=== PATIENT | male | born 1970 | race Two or more races ===

== ENCOUNTER 2025-06-30 19:48 | Inpatient (IN) | payer OTHER ==
[~2025-06-30] VITALS: Ht 167.6 cm; Wt 84.6 kg
--- NOTE | 2025-06-30 20:22 | ED.PDOC ---
Musculoskeletal HPI Comments 54-year-old male who came to ER for right foot swelling. Patient with history of alcohol abuse. Resides at a [facility] facility. He has having right foot swelling that progressively worsened in the past few days. Denies any fever or recent trauma. Patient reports he has had issues with this right foot previously, does not state when that was specifically. He states that he was recently admitted to a hospital related to his alcohol abuse and was already having the issue, however, was not treated for such. Does have fungal nails. Denies any fever, trauma. Reports that today he noticed that the foot was more painful, swollen. Chief Complaint: Extremity Swelling Time Seen by MD: 20:21 Reviewed Notes: Nurses Notes Allergies: Coded Allergies: NO KNOWN ALLERGIES (Unverified , 06/30/25) Information Source: Patient Mode of Arrival: Ambulatory Location: Right Extremity Location: Foot Past Medical History PAST MEDICAL HISTORY: Denies Surgical History: Denies all surgeries Family History Family History: Reviewed,noncontributory to illness Social History Smoker: Non-Smoker Alcohol: Heavy Drugs: Denies Drug Use Lives In: Assisted Care Constitutional: denies: chills, diaphoresis, fatigue, fever, malaise, sweats, weakness, others EENTM: denies: blurred vision, double vision, ear bleeding, ear discharge, ear drainage, ear pain, ear ringing, eye pain, eye redness, hearing loss, mouth pain, mouth swelling, nasal discharge, nose bleeding, nose congestion, nose pain, photophobia, tearing, throat pain, throat swelling, voice changes, others Respiratory: denies: cough, hemoptysis, orthopnea, SOB at rest, shortness of breath, SOB with excertion, stridor, wheezing, others Cardiovascular: denies: chest pain, dizzy spells, diaphoresis, Dyspnea on exertion, edema, irregular heart beat, left arm pain, lightheadedness, palpitations, PND, syncope, others Gastrointestinal: denies: abdomen distended, abdominal pain, blood streaked bowels, constipated, diarrhea, dysphagia, difficulty swallowing, hematemesis, melena, nausea, poor appetite, poor fluid intake, rectal bleeding, rectal pain, vomiting, others Genitourinary: denies: burning, dysuria, flank pain, frequency, hematuria, incontinence, penile discharge, penile sore, pain, testicle pain, testicle swelling, urgency, others Neurological: denies: dizziness, fainting, headache, left sided numbness, left sided weakness, numbness, paresthesia, pre-existing deficit, right sided numbness, right sided weakness, seizure, speech problems, tingling, tremors, weakness, others Musculoskeletal: reports: others (Right foot swelling); denies: back pain, gout, joint pain, joint swelling, muscle pain, muscle stiffness, neck pain Integumetry: denies: bruises, change in color, change in hair/nails, dryness, laceration, lesions, lumps, rash, wounds, others Allergic/Immunocompromised: denies: Difficulty Healing, Frequent Infections, Hives, Itching, others Hematologic/Lymphatic: denies: anemia, blood clots, easy bleeding, easy bruising, swollen glands, others Endocrine: denies: excessive hunger, excessive sweating, excessive thirst, excessive urination, flushing, intolerance to cold, intolerance to heat, unexplained weight gain, unexplained weight loss, others Psychiatric: denies: anxiety, bipolar disorder, depression, hopeless, panic disorder, schizophrenia, sleepless, suicidal, others Physical Exam General Appearance: No Apparent Distress, Normal HEENT: Normal ENT Inspection, Pharynx Normal, TMs Normal Neck: Full Range of Motion, Non-Tender, Normal, Normal Inspection Respiratory: Chest Non-Tender, Lungs Clear, No Accessory Muscle Use, No Respiratory Distress, Normal Breath Sounds Cardiovascular: No Edema, No JVD, No Murmur, No Gallop, Normal Peripheral Pulses, Regular Rate/Rhythm Breast Exam: Deferred Gastrointestinal: No Organomegaly, Non Tender, No Pulsatile Mass, Normal Bowel Sounds, Soft Genitalia: Deferred Pelvic: Deferred Rectal: Deferred Extremities: No calf tenderness, Normal capillary refill, Normal range of motion, Non-tender, Swelling (Right foot: +soft tissue swelling along entire dorsum of foot, +palpable pulse, no crepitus, +fungal nails, no discoloration of toes) Musculoskeletal : Apperance: Normal Neurologic: Alert, medical manager II-XII nml as Tested, No Motor Deficits, Normal Affect, Normal Mood, No Sensory Deficits Cerebellar Function: Normal Reflexes: Normal Skin: Dry, Normal Color, Warm Lymphatic: No Adenopathy Was a procedure done? Was a procedure done?: No Differential Diagnosis EXT Differential Diagnosis: Cellulitis, Sprain, Strain, Arthritis X-Ray, Labs, Meds, VS Vital Signs Date Time Temp Pulse Resp B/P (MAP) Pulse Ox O2 Delivery O2 Flow Rate FiO2 06/30/25 23:25 98.5 06/30/25 23:25 98.5 06/30/25 23:09 98.0 69 16 161/113 (129) 98 98.0 06/30/25 22:19 98.5 06/30/25 22:18 98.2 06/30/25 19:50 98.1 76 16 153/96 97 98.1 Lab Test 06/30/25 21:33 Range/Units White Blood Count 7.8 4.4-10.8 10^3/uL Red Blood Count 4.76 4.5-5.90 10^6/uL Hemoglobin 13.4 L 13.5-17.5 g/dL Hematocrit 40.1 L 41.0-53.0 % Mean Corpuscular Volume 84.4 80.0-100.0 fL Mean Corpuscular Hemoglobin 28.1 28.0-32.0 pg Mean Corpuscular Hemoglobin Concent 33.3 32.0-36.0 g/dL Red Cell Distribution Width 14.7 H 11.8-14.3 % Platelet Count 291 140-450 10^3/uL Mean Platelet Volume 8.5 6.9-10.8 fL Neutrophils (%) (Auto) 56.4 37.0-80.0 % Lymphocytes (%) (Auto) 27.2 10.0-50.0 % Monocytes (%) (Auto) 9.2 0.0-12.0 % Eosinophils (%) (Auto) 6.3 0.0-7.0 % Basophils (%) (Auto) 0.9 0.0-2.0 % Neutrophils # (Auto) 4.4 1.6-8.6 10 ^3/uL Lymphocytes # (Auto) 2.1 0.4-5.4 10 ^3/uL Monocytes # (Auto) 0.7 0-1.3 10 ^3/uL Eosinophils # (Auto) 0.5 0-0.8 10 ^3/uL Basophils # (Auto) 0.1 0-0.2 10 ^3/uL Nucleated Red Blood Cells 0.1 % Erythrocyte Sedimentation Rate 11 0-20 mm/hr Sodium Level 141 136-145 mmol/L Potassium Level 4.1 3.5-5.1 mmol/L Chloride Level 104 98-107 mmol/L Carbon Dioxide Level 28 20-31 mmol/L Anion Gap 9 5-15 Blood Urea Nitrogen 13 9-23 mg/dL Creatinine 0.77 0.700-1.30 mg/dL Glomerular Filtration Rate Calc 106 >90 mL/min BUN/Creatinine Ratio 16.9 10.0-20.0 Serum Glucose 103 74-106 mg/dL Lactic Acid Level 1.7 0.4-2.0 mmol/L Calcium Level 9.8 8.7-10.4 mg/dL C-Reactive Protein High Sensitivity 0.33 <1.0 mg/dL Current Medications Medications (Trade) Dose Ordered Sig/Cher Route Start Time Stop Time Status Last Admin Cephalexin (Keflex Capsule) 500 mg ONCE ONCE PO 06/30/25 20:15 06/30/25 20:16 DC 06/30/25 23:24 Acetaminophen (Tylenol Tablet Or Capsule) 1,000 mg ONCE ONCE PO 06/30/25 20:15 06/30/25 20:16 DC 06/30/25 22:19 Ibuprofen (Motrin Tablet) 600 mg ONCE ONCE PO 06/30/25 20:15 06/30/25 20:16 DC 06/30/25 22:18 Ceftriaxone Sodium 50 ml @ 100 mls/hr ONCE ONCE IV 06/30/25 21:30 06/30/25 21:59 DC 06/30/25 22:19 Vancomycin HCl 250 ml @ 200 mls/hr ONCE ONCE IV 06/30/25 21:30 06/30/25 22:44 DC 06/30/25 21:30 EXAM: XY R FOOT 3 VIEW XRAY INDICATION: right foot pain/swelling TECHNIQUE: 3 views of the right foot COMPARISON: None FINDINGS/IMPRESSION: Achilles insertional enthesophyte. Small plantar calcaneal spur. Callus formation which may be sequelae of prior injury along the distal fibula versus posterior malleolus/distal tibia. Dorsal forefoot soft tissue swelling. Suspected freiberg's infraction of the 2nd metatarsal. Question soft tissue emphysema centered of the base of the 1st proximal phalanx and possible extending along the margin of the 1st metatarsal. If clinical concern for osteomyelitis consider further evaluation with MRI. Time of 1ST Reevaluation: 20:19 Reevaluation 1ST: Unchanged Patient Education/Counseling: Diagnosis, Treatment Family Education/Counseling: No Family Present Sepsis Sepsis Reasesment Focused Exam Orders: Laboratory Tests 06/30/25 21:33: Lactic Acid Level 1.7 Departure 1 Departure Time of Disposition: 22:07 (54-year-old male with past medical history of alcohol abuse who is presenting for evaluation of acute on chronic right foot pain swelling. Patient has dark skin, has obvious swelling noted, however, no obvious erythema, does have some slight warmth, seems consistent likely with a cellulitis as the patient has a lot of dry, cracked skin as an entry point for cellulitis. An x-ray of the foot was performed which shows questionable soft tissue emphysema. CT RLE w/ contrast ordered to further evaluate. Shows no evidence of soft tissue emphysema. However, does show significant swelling, inflammation and fluid, no organized collection to suggest abscess. Patient has palpable dorsalis pedis pulse, no discoloration of the toes, does not seem concerning for critical limb ischemia or gangrene. Pt arrives with normal vitals, does not appear toxic. CBC with no evidence of critical leukocytosis. Blood cultures and lactate obtained , lactate within normal limits. Patient given IV ceftriaxone, vancomycin for broad-spectrum coverage. Given oral Tylenol, ibuprofen for analgesia. Patient will be admitted for further management of right-sided foot cellulitis.) Impression: Primary Impression: Right foot pain Additional Impression: Cellulitis of right foot Disposition: ADMITTED INPATIENT Condition: Stable Critical Care Note Critical Care Time?: No Stability Stability form required: No Heart Score Heart Score: Heart Score Response (Comments) Value History N/A 0 EKG N/A 0 Age N/A 0 Risk Factors N/A 0 Troponin N/A 0 Total 0 I personally scribed for AFRICA SHAIKH MD ([email or web address]) on 06/30/25 at 20:22. Electronically submitted by Del Pierre [email or web address]). I personally scribed for AFRICA SHAIKH MD ([email or web address]) on 06/30/25 at 20:34. Electronically submitted by Del [facility] ([email or web address] I personally scribed for AFRICA SHAIKH MD ([email or web address]) on 06/30/25 at 21:13. Electronically submitted by Del Pierre ([facility]). AFRICA SHAIKH MD Jun 30, 2025 20:22
--- NOTE | 2025-06-30 21:05 | DVH ---
EXAM: XY R FOOT 3 VIEW XRAY INDICATION: right foot pain/swelling TECHNIQUE: 3 views of the right foot COMPARISON: None FINDINGS/IMPRESSION: Achilles insertional enthesophyte. Small plantar calcaneal spur. Callus formation which may be sequelae of prior injury along the distal fibula versus posterior malleolus/distal tibia. Dorsal forefoot soft tissue swelling. Suspected freiberg's infraction of the 2nd metatarsal. Question soft tissue emphysema centered of the base of the 1st proximal phalanx and possible extending along the margin of the 1st metatarsal. If clinical concern for osteomyelitis consider further evaluation with MRI.
[2025-06-30] MEDS: VANCOMYCIN 1.25GM/250ML 250 ML IV ONE (21:30)
[2025-06-30 22:00] LABS: Hematocrit 40.1 % (41.0-53.0); Hemoglobin 13.4 g/dL (13.5-17.5); Mean Corpuscular Hemoglobin 28.1 pg (28.0-32.0); Mean Corpuscular Volume 84.4 fL (80.0-100.0); Nucleated Red Blood Cells % 0.1 %
[2025-06-30 22:16] LABS: Chloride 104 mmol/L (98-107); Potassium 4.1 mmol/L (3.5-5.1); Sodium 141 mmol/L (136-145)
[2025-06-30 22:17] LABS: Anion Gap 9 (5-15); Calcium 9.8 mg/dL (8.7-10.4); Carbon Dioxide 28 mmol/L (20-31)
[2025-06-30] MEDS: IBUPROFEN 600 MG TAB PO ONE (22:18)
[2025-06-30] MEDS: ACETAMINOPHEN 500 MG TAB or CAP PO ONE (22:19)
[2025-06-30 22:22] LABS: BUN/Creatinine Ratio 16.9 (10.0-20.0); Blood Urea Nitrogen 13 mg/dL (9-23); Glucose 103 mg/dL (74-106)
[2025-06-30] MEDS: CEPHALEXIN 250 MG CAP PO ONE (23:24)
[2025-06-30] MEDS: IOHEXOL 300 MG/ML 100ML BOTTLE IJ ONE (23:44)
[2025-07-01] VITALS (7 sets, daily range): BP systolic 118–141; BP diastolic 70–83; PULSE 62–69; RESP 17–18; TEMP 97.7–98.4; O2SAT 95–97
--- NOTE | 2025-07-01 00:21 | DVH ---
Exam: CT RT LOWER EXTREMITY W CON History: right foot swelling; eval for soft tissue emphysema on XR Comparison Study: None TECHNIQUE: A digital property specialist image was obtained. During the uneventful, intravenous administration of contrast material, multislice data acquisition was obtained through the right lower extremity. The data set was subsequently reconstructed into multiplanar reformats. RADIATION DOSE: CTDI vol 7.8 mGy. DLP 239.1 mGy.cm Findings: There is no acute fracture. No evidence of dislocation. There is a chronic appearing deformity of the distal fibula. No soft tissue gas is seen. Nonspecific subcutaneous stranding, fluid, and stranding without drainable collection. Impression: 1. No acute fracture. 2. Subcutaneous swelling, stranding, and fluid suggesting infectious/ inflammatory process in the appropriate clinical setting. If there is clinical concern for osteomyelitis, MRI would be more sensitive in further assessment.
--- NOTE | 2025-07-01 01:27 | DVHHPRES ---
History of Present Illness Resident Creating Document: AIDAN KIRK RESIDENT History of Present Illness This is a 54 years old male with past medical history of ETOH use disorder under rehab, HTN not on any medication, questionable CAD came to ED with the complaint of right foot pain for 3 days which is 8/10 intensity when walking or weight- bearing, dull, no radiation, mild lived on taking rest. Patient denies any recent trauma, MVA , insect bite or sick contact. As per patient, need hospitalization and G-tube feeding secondary to unknown etiology. Patient currently denies any fever, SOB, chest pain, abdominal pain, dysuria or any other acute distress. Past medical history: As above Past surgical history: s/p G-tube Personal history: Current smoker, ETOH use disorder currently on rehab quit 1 year or earlier, no illicit drug use Family history: Nothing contributory PCP: [facility] Allergy: No known allergy Home medication: Unable to recall any name. Need to verify his family member per primary team. Review of Systems Constitutional: Yes: Weakness, Malaise; No: Fever, Chills, Sweats, Other Eyes: No: Pain, Vision change, Conjunctivae inflammation, Eyelid inflammation, Other, Redness ENT: No: Ear pain, Ear discharge, Nose pain, Nose discharge, Nose congestion, Mouth pain, Mouth swelling, Throat pain, Throat swelling, Other Respiratory: No: Cough, Dry, Shortness of breath, SOB with excertion, Wheezing, Hemoptysis, Pleuritic Pain, Sputum, Wheezing, Other Cardiovascular: No: Chest Pain, Palpitations, Orthopnea, Paroxysmal Noc. Dyspnea, Edema, Lt Headedness, Other Genitourinary: No Dysuria, No Frequency, No Incontinence, No Hematuria, No Retention, No Other Musculoskeletal: other, foot pain; No: neck pain, shoulder pain, arm pain, back pain, hand pain, leg pain Skin: Other (Swelling right food and fungal nail); No: Rash, Lesions, Jaundice, Bruising Neurological: No: Weakness, Numbness, Incoordination, Change in speech, Confusion, Seizures, Other Allergies: Coded Allergies: NO KNOWN ALLERGIES (Unverified , 06/30/25) Exam Vital Signs Vital Signs Date Time Temp Pulse Resp B/P (MAP) Pulse Ox O2 Delivery O2 Flow Rate FiO2 07/01/25 01:14 97.8 70 16 173/119 (137) 96 97.8 General Appearance: Alert, Oriented X3, Cooperative, moderate distress HEENT: Atraumatic, PERRLA, EOMI Respiratory: Clear to auscultation, Normal air movement Cardiovascular: Regular rate, Normal S1, Normal S2, No murmurs Abdominal: Normal bowel sounds, Soft, No tenderness Extremities: Other (Tender and swollen right foot but no skin breakdown.) Skin: No breakdown, No significant lesion Neuro: Normal gait, Normal speech, Strength at 5/5 X4 ext, Cranial nerves 3-12 NL Psych/Mental Status: Mental status NL, Mood NL Labs/Xrays Labs Test 06/30/25 21:33 Range/Units White Blood Count 7.8 4.4-10.8 10^3/uL Red Blood Count 4.76 4.5-5.90 10^6/uL Hemoglobin 13.4 L 13.5-17.5 g/dL Hematocrit 40.1 L 41.0-53.0 % Mean Corpuscular Volume 84.4 80.0-100.0 fL Mean Corpuscular Hemoglobin 28.1 28.0-32.0 pg Mean Corpuscular Hemoglobin Concent 33.3 32.0-36.0 g/dL Red Cell Distribution Width 14.7 H 11.8-14.3 % Platelet Count 291 140-450 10^3/uL Mean Platelet Volume 8.5 6.9-10.8 fL Neutrophils (%) (Auto) 56.4 37.0-80.0 % Lymphocytes (%) (Auto) 27.2 10.0-50.0 % Monocytes (%) (Auto) 9.2 0.0-12.0 % Eosinophils (%) (Auto) 6.3 0.0-7.0 % Basophils (%) (Auto) 0.9 0.0-2.0 % Neutrophils # (Auto) 4.4 1.6-8.6 10 ^3/uL Lymphocytes # (Auto) 2.1 0.4-5.4 10 ^3/uL Monocytes # (Auto) 0.7 0-1.3 10 ^3/uL Eosinophils # (Auto) 0.5 0-0.8 10 ^3/uL Basophils # (Auto) 0.1 0-0.2 10 ^3/uL Nucleated Red Blood Cells 0.1 % Erythrocyte Sedimentation Rate 11 0-20 mm/hr Sodium Level 141 136-145 mmol/L Potassium Level 4.1 3.5-5.1 mmol/L Chloride Level 104 98-107 mmol/L Carbon Dioxide Level 28 20-31 mmol/L Anion Gap 9 5-15 Blood Urea Nitrogen 13 9-23 mg/dL Creatinine 0.77 0.700-1.30 mg/dL Glomerular Filtration Rate Calc 106 >90 mL/min BUN/Creatinine Ratio 16.9 10.0-20.0 Serum Glucose 103 74-106 mg/dL Lactic Acid Level 1.7 0.4-2.0 mmol/L Calcium Level 9.8 8.7-10.4 mg/dL C-Reactive Protein High Sensitivity 0.33 <1.0 mg/dL SEPSIS Sepsis Screen Date sepsis recognized/suspect: Jun 30, 2025 Time Sepsis recognized/suspect: 1954 Recent Procedure: No On Antibiotic Therapy: No Respiratory Rate >20: No Heart Rate >90: No Temp<36 C (96.8 F) or >38.3 C: No SBP <90 or MAP <65 mmHG: No New Acute Mental Status Change: No Is the patient on CPAP, BIPAP,: No Physician Orders R Foot 3 View Xray (06/30/25 20:10) Blood Culture (06/30/25 21:20) Rt Lower Extremity W Con (06/30/25 21:32) Admit (07/01/25 01:17) Code Status (07/01/25 01:17) 0.9% Ns 1000 Ml (07/01/25 01:30) Enoxaparin Sodium (Lovenox) (07/01/25 10:00) Zinc Sulfate (07/01/25 10:00) Ascorbic Acid Tablet (Vitamin C Tablet) (07/01/25 10:00) Cardiac Diet-2gna,Lofat,Lochol (07/01/25 Breakfast) Echo 2d Mode Cardiac Dop (07/01/25 01:17) Acetaminophen Tablet (Tylenol Tablet) (07/01/25 01:30) Notify Of Changes From Base (07/01/25 01:17) Ceftriaxone Ivpb Rocephin (07/01/25 09:00) Vancomycin (07/01/25 01:30) Losartan Tablet (Cozaar Tablet) (07/01/25 01:30) Losartan Tablet (Cozaar Tablet) (07/01/25 10:00) Pantoprazole Tablet (Protonix Tablet) (07/01/25 06:00) Vital Signs Date Time Temp Pulse Resp B/P (MAP) Pulse Ox O2 Delivery O2 Flow Rate FiO2 07/01/25 01:14 97.8 70 16 173/119 (137) 96 97.8 06/30/25 23:25 98.5 06/30/25 23:25 98.5 06/30/25 23:09 98.0 69 16 161/113 (129) 98 98.0 06/30/25 22:19 98.5 06/30/25 22:18 98.2 06/30/25 19:50 98.1 76 16 153/96 97 98.1 Laboratory Tests Test 06/30/25 21:33 Lactic Acid Level 1.7 mmol/L (0.4-2.0) White Blood Count 7.8 10^3/uL (4.4-10.8) Medications Medications Dose Ordered Sig/Cher Route Start Time Stop Time Status Last Admin Dose Admin Acetaminophen 1,000 mg ONCE ONCE PO 06/30/25 20:15 06/30/25 20:16 DC 06/30/25 22:19 1,000 MG Ceftriaxone Sodium 50 ml @ 100 mls/hr ONCE ONCE IV 06/30/25 21:30 06/30/25 21:59 DC 06/30/25 22:19 100 MLS/HR Cephalexin 500 mg ONCE ONCE PO 06/30/25 20:15 06/30/25 20:16 DC 06/30/25 23:24 500 MG Ibuprofen 600 mg ONCE ONCE PO 06/30/25 20:15 06/30/25 20:16 DC 06/30/25 22:18 600 MG Vancomycin HCl 250 ml @ 200 mls/hr ONCE ONCE IV 06/30/25 21:30 06/30/25 22:44 DC 06/30/25 21:30 200 MLS/HR Assessment/Plan Assessment/Plan Right foot pain secondary to cellulitis Suspected freiberg's infraction 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 CT right lower extremity-No acute fracture. Subcutaneous swelling, stranding, and fluid suggesting infectious/ inflammatory process in the appropriate clinical setting. CRP : 0.33 ESR: 11 Lactic acid: 1.7 Blood culture X-ray right foot: Achilles insertional enthesophyte. Small plantar calcaneal spur. Callus formation which may be sequelae of prior injury along the distal fibula versus posterior malleolus/distal tibia. Dorsal forefoot soft tissue swelling. Suspected freiberg's infraction of the 2nd metatarsal. Question soft tissue emphysema centered of the base of the 1st proximal phalanx and possible extending along the margin of the 1st metatarsal. IVF Empiric antibiotic ceftriaxone and vancomycin Pain management Orthopedic consult as per primary team Essential hypertension ? Coronary artery disease Patient not on any medication Losartan 50 mg daily Monitor blood pressure Reconciling medication a.m. team Echo Anemia of chronic disease Hemoglobin 13.4, HCT 40.1, MCV 84.4, RDW 14.7 No active signs symptoms of bleeding Alcohol use disorder Currently on rehab(last drink 1 year ago) Thiamine and folic acid Diet: Cardiac GI prophylaxis: Pantoprazole DVT prophylaxis: Lovenox Goals of care discussions. More than 27 minute spent with patient. Full code status. -RN (Kandi)-over a manager placement Case discussed with Dr. Arrington Plan discussed with: Patient, Other (Nurse) My Orders Orders - AIDAN KIRK RESIDENT Procedure Category Date Status Time Admit ADMIT 07/01/25 Transmitted 01:17 Code Status CODE 07/01/25 Transmitted 01:17 0.9% Ns 1000 Ml PHA 07/01/25 Transmitted 01:30 Enoxaparin Sodium PHA 07/01/25 Transmitted (Lovenox) 10:00 Zinc Sulfate PHA 07/01/25 Transmitted 10:00 Ascorbic Acid Tablet PHA 07/01/25 Transmitted (Vitamin C Tablet) 10:00 Cardiac DIET 07/01/25 Transmitted Diet-2gna,Lofat,Lochol Breakfast Echo 2d Mode Cardiac US 07/01/25 Transmitted DOP 01:17 Acetaminophen Tablet PHA 07/01/25 Verified (Tylenol Tablet) 01:30 Notify Of Changes SHEREE 07/01/25 Verified From Base 01:17 Ceftriaxone Ivpb PHA 07/01/25 Verified Rocephin 09:00 Vancomycin PHA 07/01/25 Verified 01:30 Losartan Tablet PHA 07/01/25 Verified (Cozaar Tablet) 01:30 Losartan Tablet PHA 07/01/25 Verified (Cozaar Tablet) 10:00 Pantoprazole Tablet PHA 12/5/25 Verified (Protonix Tablet) 06:00 Visit Coding STANDARD RES Billing Provider: DYANA ARRINGTON MD Date of Service if different f: Jul 01, 2025 Common Visit Codes: [id number] INP/OBS CARE (HIGH) Secondary Visit Codes: [id number] CARE PLAN 30 MINUTES AIDAN KIRK RESIDENT Jul 01, 2025 01:27
[2025-07-01] MEDS ORDERED: VANCOMYCIN PER PHARMACY 0 MG IV SCH (01:30)
[2025-07-01] MEDS: LOSARTAN POTASSIUM 25 MG TAB PO ONE (01:37)
[2025-07-01] MEDS: ACETAMINOPHEN 325 MG TAB PO PRN (02:03)
[2025-07-01 03:02] LABS: Hematocrit 40.2 % (41.0-53.0); Hemoglobin 13.6 g/dL (13.5-17.5); Mean Corpuscular Hemoglobin 28.2 pg (28.0-32.0); Mean Corpuscular Volume 83.6 fL (80.0-100.0); Nucleated Red Blood Cells % 0.0 %
[2025-07-01] MEDS: SODIUM CHLORIDE 0.9% 1,000 ML IV SCH (03:13)
[2025-07-01] MEDS: LOSARTAN POTASSIUM 25 MG TAB PO SCH (03:13)
[2025-07-01] MEDS: VANCOMYCIN 750MG KIT 100 ML IV ONE (03:53)
[2025-07-01] MEDS: PANTOPRAZOLE 40 MG TAB PO SCH (06:00)
[2025-07-01] MEDS: ASCORBIC ACID 500 MG TAB PO SCH (10:03)
[2025-07-01] MEDS: ZINC SULFATE 220mg CAP or TAB PO SCH (10:03)
[2025-07-01] MEDS: THIAMINE HCL 100 MG TAB PO SCH (10:03)
[2025-07-01] MEDS: FOLIC ACID 1 MG TAB PO SCH (10:03)
[2025-07-01] MEDS: METOPROLOL TARTRATE 25 MG TAB PO SCH (10:04)
[2025-07-01] MEDS: ENOXAPARIN SOD 40 MG/0.4 ML SYRINGE SC SCH (10:05)
[2025-07-01 12:09] LABS: Hepatitis A Total Antibody Positive (Negative); Hepatitis B Surface Antigen Negative (Negative)
[2025-07-01 12:10] LABS: Hepatitis C Antibody Negative (Negative)
--- NOTE | 2025-07-01 13:03 | DVHPN2 ---
Reviewed: Care Plan, H&P, Labs, Medications, Previous Orders, Radiology Changes from previous H/P or p: No Changes Eyes: No Pain, No Vision change, No Conjunctivae inflammation, No Eyelid inflammation, No Other, No Redness ENT: No Ear pain, No Ear discharge, No Nose pain, No Nose discharge, No Nose congestion, No Mouth pain, No Mouth swelling, No Throat pain, No Throat swelling, No Other Cardiovascular: No Chest Pain, No Palpitations, No Orthopnea, No Paroxysmal Noc. Dyspnea, No Edema, No Lt Headedness, No Other Respiratory: No Cough, No Dry, No Shortness of breath, No SOB with excertion, No Wheezing, No Hemoptysis, No Pleuritic Pain, No Sputum, No Other Genitourinary: No Dysuria, No Frequency, No Incontinence, No Hematuria, No Retention, No Other Musculoskeletal: other; No neck pain, No shoulder pain, No arm pain, No back pain, No hand pain, No leg pain; foot pain Skin: No Rash, No Lesions, No Jaundice, No Bruising; Other (Swelling right food and fungal nail) Objective Vitals Vital Signs Date Time Temp Pulse Resp B/P (MAP) Pulse Ox O2 Delivery O2 Flow Rate FiO2 07/01/25 12:58 98.2 64 18 119/70 (86) 97 98.2 07/01/25 08:00 Room Air* 0 21 Medications Current Medications Medications Dose Ordered Sig/Cher Route Start Time Stop Time Status Last Admin Dose Admin Sodium Chloride 1,000 ml @ 60 mls/hr [id number] IV 07/01/25 01:30 07/01/25 03:13 60 MLS/HR Enoxaparin Sodium 40 mg DAILY SC 07/01/25 10:00 07/01/25 10:05 40 MG Zinc Sulfate 220 mg DAILY PO 07/01/25 10:00 07/01/25 10:03 220 MG Ascorbic Acid 500 mg BID PO 07/01/25 10:00 07/01/25 10:03 500 MG Acetaminophen 650 mg Q6HP PRN PO 07/01/25 01:30 07/01/25 02:03 650 MG Ceftriaxone Sodium 50 ml @ 100 mls/hr DAILY@09 IV 07/01/25 09:00 07/01/25 10:01 100 MLS/HR Vancomycin HCl 0 ml @ 0 mls/hr PER PHARMACY IV 07/01/25 01:30 Pantoprazole Sodium 40 mg DAILY@0600 PO 07/01/25 06:00 07/01/25 06:00 40 MG Clonidine HCl 0.1 mg Q4HP PRN PO 07/01/25 01:45 Metoprolol Tartrate 25 mg BID PO 07/01/25 10:00 07/01/25 10:04 25 MG Thiamine HCl 100 mg DAILY PO 07/01/25 10:00 07/01/25 10:03 100 MG Folic Acid 1 mg DAILY PO 07/01/25 10:00 07/01/25 10:03 1 MG Losartan Potassium 100 mg DAILY PO 07/01/25 02:30 Vancomycin HCl 350 ml @ 200 mls/hr Q12H IV 07/01/25 16:00 Laboratory Results Laboratory Tests 06/30/25 21:33 07/01/25 02:41 Chemistry Test 06/30/25 21:33 Calcium Level 9.8 mg/dL (8.7-10.4) HgA1c, TSH Test 07/01/25 02:41 Hemoglobin A1c 5.9 % A1C (<5.7) H Thyroid Stimulating Hormone (TSH) 2.20 uIU/mL (0.55-4.78) Labs and/or images reviewed: Labs reviewed by me, Image(s) reviewed by me Assessment/Plan Assessment/Plan Right foot infection: Vancomycin Rocephin Possible osteomyelitis right 2nd metatarsal by CT: consult for podiatric Hypertension Chronic current alcohol abuse: Counseling Moderate malnutrition Spent 45 minutes Plan discussed with: Patient My Orders Orders - CHELI LOCKHART MD Procedure Category Date Status Time *Podiatry Consult CONS 07/01/25 Transmitted Kelsey(D[facility]) 12:57 Date of Service: Jul 01, 2025 Billing Provider: CHELI LOCKHART MD Common Visit Codes: [id number] INP/OBS CARE(HIGH) CHELI LOCKHART MD Jul 01, 2025 13:03
[2025-07-01] MEDS: VANCOMYCIN 1.75GM/350ML 350 ML IV SCH (16:48)
[2025-07-02 01:00] VITALS: BP 108/75; PULSE 68; RESP 16; TEMP 97.8; O2SAT 98
[2025-07-02 05:00] VITALS: BP 141/95; PULSE 67; RESP 17; TEMP 98; O2SAT 98
[2025-07-02 07:07] LABS: Cholesterol 138 mg/dL (< 200)
[2025-07-02 07:10] LABS: HDL Cholesterol 38 mg/dL (40-59); Triglycerides 163 mg/dL (< 150)
[2025-07-02 09:00] VITALS: BP_SYST 133; BP_SYST 139; BP_DIAS 72; BP_DIAS 82; PULSE 67; PULSE 72; RESP 20; RESP 96; TEMP 97.8; O2SAT 95; O2SAT 98
[2025-07-02] MEDS ORDERED: LOSARTAN POTASSIUM 25 MG TAB PO SCH (10:00)
--- NOTE | 2025-07-02 12:03 | DVHPN2 ---
Reviewed: Care Plan, H&P, Labs, Medications, Previous Orders, Radiology Changes from previous H/P or p: No Changes Eyes: No Pain, No Vision change, No Conjunctivae inflammation, No Eyelid inflammation, No Other, No Redness ENT: No Ear pain, No Ear discharge, No Nose pain, No Nose discharge, No Nose congestion, No Mouth pain, No Mouth swelling, No Throat pain, No Throat swelling, No Other Cardiovascular: No Chest Pain, No Palpitations, No Orthopnea, No Paroxysmal Noc. Dyspnea, No Edema, No Lt Headedness, No Other Respiratory: No Cough, No Dry, No Shortness of breath, No SOB with excertion, No Wheezing, No Hemoptysis, No Pleuritic Pain, No Sputum, No Other Genitourinary: No Dysuria, No Frequency, No Incontinence, No Hematuria, No Retention, No Other Musculoskeletal: other; No neck pain, No shoulder pain, No arm pain, No back pain, No hand pain, No leg pain; foot pain Skin: No Rash, No Lesions, No Jaundice, No Bruising; Other (Swelling right food and fungal nail) Objective Vitals Vital Signs Date Time Temp Pulse Resp B/P (MAP) Pulse Ox O2 Delivery O2 Flow Rate FiO2 07/02/25 09:02 67 141/95 07/02/25 09:00 97.8 96 98 97.8 07/02/25 07:45 Room Air* 0 21 Intake/Output Intake and Output 07/02/25 07:00 Intake Total 2645 ml Output Total 1400 ml Balance 1245 ml Intake Oral 1895 ml IV Total 750 ml Output Urine Total 1400 ml Medications Current Medications Medications Dose Ordered Sig/Cher Route Start Time Stop Time Status Last Admin Dose Admin Sodium Chloride 1,000 ml @ 60 mls/hr [id number] IV 07/01/25 01:30 07/02/25 09:10 60 MLS/HR Enoxaparin Sodium 40 mg DAILY SC 07/01/25 10:00 07/02/25 09:04 40 MG Zinc Sulfate 220 mg DAILY PO 07/01/25 10:00 07/02/25 09:01 220 MG Ascorbic Acid 500 mg BID PO 07/01/25 10:00 07/02/25 09:01 500 MG Acetaminophen 650 mg Q6HP PRN PO 07/01/25 01:30 07/01/25 02:03 650 MG Ceftriaxone Sodium 50 ml @ 100 mls/hr DAILY@09 IV 07/01/25 09:00 07/02/25 08:58 100 MLS/HR Vancomycin HCl 0 ml @ 0 mls/hr PER PHARMACY IV 07/01/25 01:30 Pantoprazole Sodium 40 mg DAILY@0600 PO 07/01/25 06:00 07/02/25 06:26 40 MG Clonidine HCl 0.1 mg Q4HP PRN PO 07/01/25 01:45 Metoprolol Tartrate 25 mg BID PO 07/01/25 10:00 07/02/25 09:02 25 MG Thiamine HCl 100 mg DAILY PO 07/01/25 10:00 07/02/25 08:58 100 MG Folic Acid 1 mg DAILY PO 07/01/25 10:00 07/02/25 08:58 1 MG Losartan Potassium 100 mg DAILY PO 07/01/25 02:30 07/02/25 09:00 100 MG Vancomycin HCl 350 ml @ 200 mls/hr Q12H IV 07/01/25 16:00 07/02/25 04:00 200 MLS/HR Laboratory Results Laboratory Tests 06/30/25 21:33 07/01/25 02:41 Lipid panel Test 07/02/25 04:49 Cholesterol Level 138 mg/dL (< 200) HDL Cholesterol 38 mg/dL (40-59) L Triglycerides Level 163 mg/dL (< 150) H Microbiology Microbiology Date/Time Source Procedure Growth Status 06/30/25 21:39 Blood Blood Culture - Preliminary NO GROWTH AFTER 24 HOURS OF INCUBATION. Resulted Labs and/or images reviewed: Labs reviewed by me, Image(s) reviewed by me Assessment/Plan Assessment/Plan Right foot infection: Vancomycin Rocephin Possible osteomyelitis right 2nd metatarsal by CT: consult for podiatric Hypertension Chronic current alcohol abuse: Counseling Moderate malnutrition Spent 45 minutes Plan discussed with: Patient My Orders Orders - CHELI LOCKHART MD Procedure Category Date Status Time *Podiatry Consult CONS 07/01/25 Transmitted [facility]) 12:57 Date of Service: Jul 02, 2025 Billing Provider: CHELI LOCKHART MD Common Visit Codes: [id number] INP/OBS CARE(HIGH) CHELI LOCKHART MD Jul 02, 2025 12:03
[2025-07-02 12:49] VITALS: BP 155/68; PULSE 79; RESP 18; TEMP 98.6; O2SAT 92
[2025-07-02 16:38] VITALS: BP_SYST 123; BP_SYST 129; BP_DIAS 72; BP_DIAS 81; PULSE 61; PULSE 70; RESP 18; RESP 20; TEMP 98.4; TEMP 98.6; O2SAT 96; O2SAT 97
[2025-07-02 21:00] VITALS: BP 116/75; PULSE 68; RESP 17; TEMP 97.7; O2SAT 95
[2025-07-03] VITALS (7 sets, daily range): BP systolic 108–141; BP diastolic 78–85; PULSE 60–79; RESP 16–18; TEMP 97.2–98.7; O2SAT 94–99
[2025-07-03 07:10] LABS: Hematocrit 41.5 % (41.0-53.0); Hemoglobin 13.8 g/dL (13.5-17.5); Mean Corpuscular Hemoglobin 28.1 pg (28.0-32.0); Mean Corpuscular Volume 84.6 fL (80.0-100.0); Nucleated Red Blood Cells % 0.1 %
--- NOTE | 2025-07-03 11:27 | DVHSR ---
APPROVED REPORT EXAM: Two-dimensional and M-mode echocardiogram with Doppler and color Doppler. Blood Pressure: 141/95 mmHg INDICATION HISTORY OF CARDIAC DISEASE RULE OUT HEART FALURE RISK FACTORS Obesity: Height: 5'6, Weight: 189 DIMENSIONS LVDd 4.2 (3.8-5.7cm) LA (2D) 4.5 (1.9-4.0cm) Aortic Root 3.1 (2.0-3.7cm) LVDs 3.1 (2.5-4.0cm) LA (MM) (1.9-4.0cm) Aortic Cusp Exc 1.6 (1.5-2.0cm) EF (%) 53.0 (55-70%) Rt. Atrium 3.5 (1.9-4.0cm) Asc. Aorta cm IVSd 0.8 (0.7-1.1cm) RV (D) 2.8 (1.8-2.4cm) PWd 0.8 (0.7-1.1cm) Mitral Valve Mitral Mitral Stenosis E wave 0.75m/s MV Mean GR. mmHg A wave 0.75m/s MV Peak GR. mmHg E/A ratio 1.0 2D MVA cm2 DECEL Time 167ms PRESS 1/2 Time ms Aortic Valve Aortic Valve Aortic Stenosis V1 0.88m/s AO Mean GR. 4mmHg V2 1.23m/s AO Peak GR. 6mmHg LVOT Diameter 2.0 (1.8-2.4cm) Doppler [place] 2.25cm2 Pulmonic Valve V2 0.75m/s Other Information Quality : TDS Rhythm : Technically limited study due to body habitus. Conclusion 1) Borderline low normal left ventricular systolic function with estimated ejection fraction of 50-55%. Normal LV wall motion 2)Mild left atrial dilatation 3)Mild tricuspid regurgitation
--- NOTE | 2025-07-03 11:52 | DVHPN2 ---
Reviewed: Care Plan, H&P, Labs, Medications, Previous Orders, Radiology Changes from previous H/P or p: No Changes Eyes: No Pain, No Vision change, No Conjunctivae inflammation, No Eyelid inflammation, No Other, No Redness ENT: No Ear pain, No Ear discharge, No Nose pain, No Nose discharge, No Nose congestion, No Mouth pain, No Mouth swelling, No Throat pain, No Throat swelling, No Other Cardiovascular: No Chest Pain, No Palpitations, No Orthopnea, No Paroxysmal Noc. Dyspnea, No Edema, No Lt Headedness, No Other Respiratory: No Cough, No Dry, No Shortness of breath, No SOB with excertion, No Wheezing, No Hemoptysis, No Pleuritic Pain, No Sputum, No Other Genitourinary: No Dysuria, No Frequency, No Incontinence, No Hematuria, No Retention, No Other Musculoskeletal: other; No neck pain, No shoulder pain, No arm pain, No back pain, No hand pain, No leg pain; foot pain Skin: No Rash, No Lesions, No Jaundice, No Bruising; Other (Swelling right food and fungal nail) Objective Vitals Vital Signs Date Time Temp Pulse Resp B/P (MAP) Pulse Ox O2 Delivery O2 Flow Rate FiO2 07/03/25 09:34 74 126/86 07/03/25 08:00 18 96 Room Air* 0 21 07/03/25 05:00 98.0 98.0 Intake/Output Intake and Output 07/03/25 07:00 Intake Total 1950 ml Balance 1950 ml Intake Oral 250 ml IV Total 1700 ml # Voids 4 Medications Current Medications Medications Dose Ordered Sig/Cher Route Start Time Stop Time Status Last Admin Dose Admin Sodium Chloride 1,000 ml @ 60 mls/hr [id number] IV 07/01/25 01:30 07/03/25 04:23 60 MLS/HR Enoxaparin Sodium 40 mg DAILY SC 07/01/25 10:00 07/03/25 08:35 40 MG Zinc Sulfate 220 mg DAILY PO 07/01/25 10:00 07/03/25 08:34 220 MG Ascorbic Acid 500 mg BID PO 07/01/25 10:00 07/03/25 08:34 500 MG Acetaminophen 650 mg Q6HP PRN PO 07/01/25 01:30 07/02/25 21:46 650 MG Ceftriaxone Sodium 50 ml @ 100 mls/hr DAILY@09 IV 07/01/25 09:00 07/03/25 08:33 100 MLS/HR Vancomycin HCl 0 ml @ 0 mls/hr PER PHARMACY IV 07/01/25 01:30 Pantoprazole Sodium 40 mg DAILY@0600 PO 07/01/25 06:00 07/03/25 05:37 40 MG Clonidine HCl 0.1 mg Q4HP PRN PO 07/01/25 01:45 Metoprolol Tartrate 25 mg BID PO 07/01/25 10:00 07/03/25 08:34 25 MG Thiamine HCl 100 mg DAILY PO 07/01/25 10:00 07/03/25 08:33 100 MG Folic Acid 1 mg DAILY PO 07/01/25 10:00 07/03/25 08:33 1 MG Losartan Potassium 100 mg DAILY PO 07/01/25 02:30 07/03/25 08:34 100 MG Vancomycin HCl 350 ml @ 200 mls/hr Q12H IV 07/01/25 16:00 07/03/25 04:23 200 MLS/HR Laboratory Results Laboratory Tests 06/30/25 21:33 07/03/25 06:00 Microbiology Microbiology Date/Time Source Procedure Growth Status 06/30/25 21:39 Blood Blood Culture - Preliminary NO GROWTH AFTER 48 HOURS OF INCUBATION. Resulted Labs and/or images reviewed: Labs reviewed by me, Image(s) reviewed by me Assessment/Plan Assessment/Plan Cellulitis right foot. Vancomycin Rocephin blood cultures negative Possible osteomyelitis right 2nd metatarsal by CT: consult for podiatric Hypertension Chronic current alcohol abuse: Counseling Moderate malnutrition Spent 45 minutes Plan discussed with: Patient Date of Service: Jul 03, 2025 Billing Provider: CHELI LOCKHART MD Common Visit Codes: [id number] INP/OBS CARE(HIGH) CHEIL LOCKHART MD Jul 03, 2025 11:52
[2025-07-04] VITALS (7 sets, daily range): BP systolic 109–136; BP diastolic 58–90; PULSE 65–88; RESP 17–20; TEMP 97.6–98.6; O2SAT 94–97
[2025-07-04 06:03] LABS: Hematocrit 40.3 % (41.0-53.0); Hemoglobin 13.8 g/dL (13.5-17.5); Mean Corpuscular Hemoglobin 28.7 pg (28.0-32.0); Mean Corpuscular Volume 84.0 fL (80.0-100.0); Nucleated Red Blood Cells % 0.1 %
--- NOTE | 2025-07-04 10:16 | DVH ---
CLINICAL INDICATION: r/o om vs abscess COMPARISON: XY R FOOT 3 VIEW XRAY on DOS: 06/30/25 TECHNIQUE: Multiplanar, multisequence MRI of the right foot was performed without intravenous contrast. Contrast: None. INTERPRETATION: Bones: There is T1 hypointensity in the 3rd metatarsal bone with corresponding edema on the STIR images. There is edema in the 2nd metatarsal head which shows flattening and subcortical irregularity without confluent replacement of the marrow in the T1 weighted images. There may be a low signal intensity fracture line on the T1 weighted image. Limited evaluation for abscess without intravenous contrast. Joints: There is 2nd metatarsophalangeal joint space narrowing. Joint spaces are otherwise maintained. No significant joint effusion. Soft tissues: No high-grade tendon or ligament injury. There is dorsal soft tissue swelling in the foot. No obvious fluid collection. IMPRESSION: 1. Osteomyelitis in the 2nd metatarsal bone. Soft tissue swelling in the dorsal foot which may reflect cellulitis. Limited evaluation for abscess without intravenous contrast. No obvious fluid collection. 2. Bone marrow edema in the 2nd metatarsal head which is flattened with narrowing of the joint space. The appearance is suspicious for Freiberg infraction. There may be a small fracture through the subchondral bone of the flattened metatarsal. No replacement of the bone marrow in the 2nd metatarsal he ad to suggest osteomyelitis.
--- NOTE | 2025-07-04 12:50 | DVHPN2 ---
Reviewed: Care Plan, H&P, Labs, Medications, Previous Orders, Radiology Changes from previous H/P or p: No Changes Eyes: No Pain, No Vision change, No Conjunctivae inflammation, No Eyelid inflammation, No Other, No Redness ENT: No Ear pain, No Ear discharge, No Nose pain, No Nose discharge, No Nose congestion, No Mouth pain, No Mouth swelling, No Throat pain, No Throat swelling, No Other Cardiovascular: No Chest Pain, No Palpitations, No Orthopnea, No Paroxysmal Noc. Dyspnea, No Edema, No Lt Headedness, No Other Respiratory: No Cough, No Dry, No Shortness of breath, No SOB with excertion, No Wheezing, No Hemoptysis, No Pleuritic Pain, No Sputum, No Other Genitourinary: No Dysuria, No Frequency, No Incontinence, No Hematuria, No Retention, No Other Musculoskeletal: other; No neck pain, No shoulder pain, No arm pain, No back pain, No hand pain, No leg pain; foot pain Skin: No Rash, No Lesions, No Jaundice, No Bruising; Other (Swelling right food and fungal nail) Objective Vitals Vital Signs Date Time Temp Pulse Resp B/P (MAP) Pulse Ox O2 Delivery O2 Flow Rate FiO2 07/04/25 09:55 60 118/87 07/04/25 09:00 98.3 20 95 98.3 07/04/25 08:00 Room Air* 0 21 Intake/Output Intake and Output 07/04/25 07:00 Intake Total 3300 ml Balance 3300 ml Intake Oral 1600 ml IV Total 1700 ml # Voids 6 # Bowel Movements 1 Medications Current Medications Medications Dose Ordered Sig/Cher Route Start Time Stop Time Status Last Admin Dose Admin Sodium Chloride 1,000 ml @ 60 mls/hr [id number] IV 07/01/25 01:30 07/04/25 01:19 60 MLS/HR Enoxaparin Sodium 40 mg DAILY SC 07/01/25 10:00 07/04/25 08:54 40 MG Zinc Sulfate 220 mg DAILY PO 07/01/25 10:00 07/04/25 08:54 220 MG Ascorbic Acid 500 mg BID PO 07/01/25 10:00 07/04/25 08:54 500 MG Acetaminophen 650 mg Q6HP PRN PO 07/01/25 01:30 07/02/25 21:46 650 MG Ceftriaxone Sodium 50 ml @ 100 mls/hr DAILY@09 IV 07/01/25 09:00 07/04/25 08:55 100 MLS/HR Vancomycin HCl 0 ml @ 0 mls/hr PER PHARMACY IV 07/01/25 01:30 Pantoprazole Sodium 40 mg DAILY@0600 PO 07/01/25 06:00 07/04/25 04:57 40 MG Clonidine HCl 0.1 mg Q4HP PRN PO 07/01/25 01:45 Metoprolol Tartrate 25 mg BID PO 07/01/25 10:00 07/04/25 08:55 25 MG Thiamine HCl 100 mg DAILY PO 07/01/25 10:00 07/04/25 08:54 100 MG Folic Acid 1 mg DAILY PO 07/01/25 10:00 07/04/25 08:54 1 MG Losartan Potassium 100 mg DAILY PO 07/01/25 02:30 07/04/25 08:55 100 MG Vancomycin HCl 350 ml @ 200 mls/hr Q12H IV 07/01/25 16:00 07/04/25 04:56 200 MLS/HR Laboratory Results Laboratory Tests 06/30/25 21:33 07/04/25 05:29 Microbiology Microbiology Date/Time Source Procedure Growth Status 06/30/25 21:39 Blood Blood Culture - Preliminary NO GROWTH AFTER 72 HOURS OF INCUBATION. Resulted Labs and/or images reviewed: Labs reviewed by me, Image(s) reviewed by me Assessment/Plan Assessment/Plan Cellulitis right foot. Vancomycin Rocephin blood cultures negative Possible osteomyelitis right 2nd metatarsal by CT: consult for podiatric Hypertension Chronic current alcohol abuse: Counseling Moderate malnutrition Time Spent 45 minutes Plan discussed with: Patient Date of Service: Jul 04, 2025 Billing Provider: CHELI LOCKHART MD Common Visit Codes: [id number] INP/OBS CARE(HIGH) CHELI LOCKHART MD Jul 04, 2025 12:50
[2025-07-05 00:45] VITALS: BP 111/70; PULSE 70; RESP 18; TEMP 98.3; O2SAT 96
[2025-07-05 05:00] VITALS: BP 123/79; PULSE 84; RESP 17; TEMP 97.9; O2SAT 97
[2025-07-05 08:00] VITALS: PULSE 74; RESP 18; O2SAT 96
[2025-07-05 09:00] VITALS: BP 119/82; PULSE 85; RESP 20; TEMP 98.1; O2SAT 95
--- NOTE | 2025-07-05 10:28 | DVHCONRES ---
Date Seen: Jul 05, 2025 Reason for Consultation Foot pain History of Present Illness This is a 54 years old male with past medical history of ETOH use disorder under rehab, HTN not on any medication, questionable CAD came to ED with the complaint of right foot pain for 3 days which is 8/10 intensity when walking or weight- bearing, dull, no radiation, mild lived on taking rest. Patient denies any recent trauma, MVA , insect bite or sick contact. As per patient, need hospitalization and G-tube feeding secondary to unknown etiology. Patient currently denies any fever, SOB, chest pain, abdominal pain, dysuria or any other acute distress. Past Medical History See H&P Past Surgical History See H&P Family History: Diabetes mellitus G8 MOTHER Allergies: Coded Allergies: NO KNOWN ALLERGIES (Unverified , 06/30/25) Home Meds Unable to Obtain Active Prescriptions or Reported Meds Vital Signs Vital Signs Date Time Temp Pulse Resp B/P (MAP) Pulse Ox O2 Delivery O2 Flow Rate FiO2 07/05/25 09:01 122/80 07/05/25 09:01 63 07/05/25 05:00 97.9 17 97 97.9 07/04/25 20:00 Room Air* 0 21 Physical Exam Dermatological: Skin is dry with mild erythema and some maceration around the wound site No gross deformities noted Mild non-pitting edema present bilaterally Fissures bilateral heel Vascular: Dorsalis pedis and posterior tibial pulses are 1+ bilaterally Capillary refill is under 2 seconds Skin temperature is warm bilaterally Neurologic: Protective sensation is absent on the plantar forefoot bilaterally Monofilament testing reveals decreased sensation in multiple plantar sites Musculoskeletal: Range of motion at the ankle and MTP joints is within normal limits. Strength is 5/5 in all tested muscle groups. Gait is antalgic due to offloading of the affected limb. Tenderness to palpation of the 2nd metatarsal in the right Labs/Diagnostic Data Labs Test 07/05/25 04:59 07/04/25 15:10 07/04/25 05:29 07/02/25 04:49 Range/Units Creatinine 0.73 0.700-1.30 mg/dL Glomerular Filtration Rate Calc 108 >90 mL/min Vancomycin Level Trough 16.7 H 5-10 ug/mL White Blood Count 6.9 4.4-10.8 10^3/uL Red Blood Count 4.80 4.5-5.90 10^6/uL Hemoglobin 13.8 13.5-17.5 g/dL Hematocrit 40.3 L 41.0-53.0 % Mean Corpuscular Volume 84.0 80.0-100.0 fL Mean Corpuscular Hemoglobin 28.7 28.0-32.0 pg Mean Corpuscular Hemoglobin Concent 34.2 32.0-36.0 g/dL Red Cell Distribution Width 14.7 H 11.8-14.3 % Platelet Count 271 140-450 10^3/uL Mean Platelet Volume 8.3 6.9-10.8 fL Neutrophils (%) (Auto) 60.0 37.0-80.0 % Lymphocytes (%) (Auto) 24.3 10.0-50.0 % Monocytes (%) (Auto) 7.3 0.0-12.0 % Eosinophils (%) (Auto) 7.3 H 0.0-7.0 % Basophils (%) (Auto) 1.1 0.0-2.0 % Neutrophils # (Auto) 4.1 1.6-8.6 10 ^3/uL Lymphocytes # (Auto) 1.7 0.4-5.4 10 ^3/uL Monocytes # (Auto) 0.5 0-1.3 10 ^3/uL Eosinophils # (Auto) 0.5 0-0.8 10 ^3/uL Basophils # (Auto) 0.1 0-0.2 10 ^3/uL Nucleated Red Blood Cells 0.1 % Triglycerides Level 163 H < 150 mg/dL Cholesterol Level 138 < 200 mg/dL LDL Cholesterol 85 < 100 mg/dL HDL Cholesterol 38 L 40-59 mg/dL Test 07/01/25 02:41 06/30/25 21:33 Range/Units Hemoglobin A1c 5.9 H <5.7 % A1C Vitamin B12 Level 639 211-911 pg/mL Vitamin D 25-Hydroxy 26.1 L 30.0-100 ng/mL Thyroid Stimulating Hormone (TSH) 2.20 0.55-4.78 uIU/mL Hepatitis A Antibody Total Positive H Negative Hepatitis B Surface Antigen Negative Negative Hepatitis B Surface Antibody Negative Negative Hepatitis B Core Total Antibody Negative Negative Hepatitis C Antibody Negative Negative Erythrocyte Sedimentation Rate 11 0-20 mm/hr Sodium Level 141 136-145 mmol/L Potassium Level 4.1 3.5-5.1 mmol/L Chloride Level 104 98-107 mmol/L Carbon Dioxide Level 28 20-31 mmol/L Anion Gap 9 5-15 Blood Urea Nitrogen 13 9-23 mg/dL BUN/Creatinine Ratio 16.9 10.0-20.0 Serum Glucose 103 74-106 mg/dL Lactic Acid Level 1.7 0.4-2.0 mmol/L Calcium Level 9.8 8.7-10.4 mg/dL C-Reactive Protein High Sensitivity 0.33 <1.0 mg/dL Microbiology Date/Time Source Procedure Growth Status 06/30/25 21:39 Blood Blood Culture - Preliminary NO GROWTH AFTER 72 HOURS OF INCUBATION. Resulted Problems(with codes): (1) Right foot pain (2) Cellulitis of right foot Plan/Recommendation ASSESSMENT: Patient is a 54-year-old seen for worsening right foot pain PLAN: - The patients chart was reviewed, clinical findings were discussed with the patient, the etiologies of the conditions were discussed in detail, and a treatment plan was agreed to at this time, with both oral and written instr uctions provided. - reviewed advanced imaging - patient has Freiberg's disease, recommend weightbearing as tolerated in a cam boot - outpatient follow up for possible surgical intervention - no osteomyelitis - no abscess - no I&D required All questions were answered and concerns addressed to the patient's satisfaction. The patient was given the phone number to the clinic and was told how to make contact with the clinic should any concerns or questions arise. Patient understands that if any questions or concerns arise prior to the next appointment, we should be contacted immediately. FOLLOW-UP: Continue to follow while inpatient Plan discussed with: Patient Visit Coding Podiatry Date of Service if different f: Jul 05, 2025 Billing Provider: FRANCES DELATORRE DPM Podiatry Common Visit Codes: CONSULT ONLY Podiatry Consult Codes: [id number] NEW/EST HI 80 FRANCES DELATORRE DPM Jul 05, 2025 10:28
[2025-07-05] MEDS ORDERED: THIA100T13 PO (12:30)
[2025-07-05] MEDS ORDERED: FOLI-119 PO (12:30)
[2025-07-05] MEDS ORDERED: CLIN1CAP70 PO (12:30)
[2025-07-05] MEDS ORDERED: HYDR-4902 PO (12:30)
--- NOTE | 2025-07-05 12:32 | DVHPN2 ---
Reviewed: Care Plan, H&P, Labs, Medications, Previous Orders, Radiology Changes from previous H/P or p: No Changes Eyes: No Pain, No Vision change, No Conjunctivae inflammation, No Eyelid inflammation, No Other, No Redness ENT: No Ear pain, No Ear discharge, No Nose pain, No Nose discharge, No Nose congestion, No Mouth pain, No Mouth swelling, No Throat pain, No Throat swelling, No Other Cardiovascular: No Chest Pain, No Palpitations, No Orthopnea, No Paroxysmal Noc. Dyspnea, No Edema, No Lt Headedness, No Other Respiratory: No Cough, No Dry, No Shortness of breath, No SOB with excertion, No Wheezing, No Hemoptysis, No Pleuritic Pain, No Sputum, No Other Genitourinary: No Dysuria, No Frequency, No Incontinence, No Hematuria, No Retention, No Other Musculoskeletal: other; No neck pain, No shoulder pain, No arm pain, No back pain, No hand pain, No leg pain; foot pain Skin: No Rash, No Lesions, No Jaundice, No Bruising; Other (Swelling right food and fungal nail) Objective Vitals Vital Signs Date Time Temp Pulse Resp B/P (MAP) Pulse Ox O2 Delivery O2 Flow Rate FiO2 07/05/25 10:01 66 118/74 07/05/25 09:00 98.1 20 95 98.1 07/04/25 20:00 Room Air* 0 21 Intake/Output Intake and Output 07/05/25 07:00 Intake Total 1230 ml Output Total 400 ml Balance 830 ml Intake Oral 880 ml IV Total 350 ml Stool Total 400 ml # Voids 4 Medications Current Medications Medications Dose Ordered Sig/Cher Route Start Time Stop Time Status Last Admin Dose Admin Sodium Chloride 1,000 ml @ 60 mls/hr [id number] IV 07/01/25 01:30 07/05/25 05:40 60 MLS/HR Enoxaparin Sodium 40 mg DAILY SC 07/01/25 10:00 07/05/25 09:01 40 MG Zinc Sulfate 220 mg DAILY PO 07/01/25 10:00 07/05/25 09:01 220 MG Ascorbic Acid 500 mg BID PO 07/01/25 10:00 07/05/25 09:01 500 MG Acetaminophen 650 mg Q6HP PRN PO 07/01/25 01:30 07/02/25 21:46 650 MG Ceftriaxone Sodium 50 ml @ 100 mls/hr DAILY@09 IV 07/01/25 09:00 07/05/25 09:00 100 MLS/HR Vancomycin HCl 0 ml @ 0 mls/hr PER PHARMACY IV 07/01/25 01:30 Pantoprazole Sodium 40 mg DAILY@0600 PO 07/01/25 06:00 07/05/25 05:40 40 MG Clonidine HCl 0.1 mg Q4HP PRN PO 07/01/25 01:45 Metoprolol Tartrate 25 mg BID PO 07/01/25 10:00 07/05/25 09:01 25 MG Thiamine HCl 100 mg DAILY PO 07/01/25 10:00 07/05/25 09:00 100 MG Folic Acid 1 mg DAILY PO 07/01/25 10:00 07/05/25 09:00 1 MG Losartan Potassium 100 mg DAILY PO 07/01/25 02:30 07/05/25 09:01 100 MG Vancomycin HCl 350 ml @ 200 mls/hr Q12H IV 07/01/25 16:00 07/05/25 04:10 200 MLS/HR Laboratory Results Laboratory Tests 06/30/25 21:33 07/04/25 05:29 07/05/25 04:59 Microbiology Microbiology Date/Time Source Procedure Growth Status 06/30/25 21:39 Blood Blood Culture - Preliminary NO GROWTH AFTER 72 HOURS OF INCUBATION. Resulted Labs and/or images reviewed: Labs reviewed by me, Image(s) reviewed by me Assessment/Plan Assessment/Plan Cellulitis right foot. Vancomycin Rocephin blood cultures negative Freiberg's disease, recommend weightbearing as tolerated in a cam boot no osteomyelitis, podiatric consult by Dr. Cole appreciated Advised outpatient follow up Hypertension Chronic current alcohol abuse: Counseling Moderate malnutrition Time Spent 45 minutes Plan discussed with: Patient Date of Service: Jul 05, 2025 Billing Provider: CHELI LOCKHART MD Common Visit Codes: [id number] INP/OBS CARE(HIGH) CHELI LOCKHART MD Jul 05, 2025 12:32
--- NOTE | 2025-07-05 12:37 | DVHDS2 ---
Discharge Summary Date of Admission Jul 01, 2025 at 01:17 Date of Discharge: Jul 05, 2025 Admitting Diagnosis Left foot ulcer and alcohol abuse Wounds: Left foot wound Labs/Diagnostic Data: Laboratory Results Test 07/05/25 04:59 07/04/25 15:10 07/04/25 05:29 07/02/25 04:49 Creatinine 0.73 mg/dL (0.700-1.30) Glomerular Filtration Rate Calc 108 mL/min (>90) Vancomycin Level Trough 16.7 ug/mL (5-10) White Blood Count 6.9 10^3/uL (4.4-10.8) Red Blood Count 4.80 10^6/uL (4.5-5.90) Hemoglobin 13.8 g/dL (13.5-17.5) Hematocrit 40.3 % (41.0-53.0) Mean Corpuscular Volume 84.0 fL (80.0-100.0) Mean Corpuscular Hemoglobin 28.7 pg (28.0-32.0) Mean Corpuscular Hemoglobin Concent 34.2 g/dL (32.0-36.0) Red Cell Distribution Width 14.7 % (11.8-14.3) Platelet Count 271 10^3/uL (140-450) Mean Platelet Volume 8.3 fL (6.9-10.8) Neutrophils (%) (Auto) 60.0 % (37.0-80.0) Lymphocytes (%) (Auto) 24.3 % (10.0-50.0) Monocytes (%) (Auto) 7.3 % (0.0-12.0) Eosinophils (%) (Auto) 7.3 % (0.0-7.0) Basophils (%) (Auto) 1.1 % (0.0-2.0) Neutrophils # (Auto) 4.1 10 ^3/uL (1.6-8.6) Lymphocytes # (Auto) 1.7 10 ^3/uL (0.4-5.4) Monocytes # (Auto) 0.5 10 ^3/uL (0-1.3) Eosinophils # (Auto) 0.5 10 ^3/uL (0-0.8) Basophils # (Auto) 0.1 10 ^3/uL (0-0.2) Nucleated Red Blood Cells 0.1 % Triglycerides Level 163 mg/dL (< 150) Cholesterol Level 138 mg/dL (< 200) LDL Cholesterol 85 mg/dL (< 100) HDL Cholesterol 38 mg/dL (40-59) Test 07/01/25 02:41 06/30/25 21:33 Hemoglobin A1c 5.9 % A1C (<5.7) Vitamin B12 Level 639 pg/mL (211-911) Vitamin D 25-Hydroxy 26.1 ng/mL (30.0-100) Thyroid Stimulating Hormone (TSH) 2.20 uIU/mL (0.55-4.78) Hepatitis A Antibody Total Positive (Negative) Hepatitis B Surface Antigen Negative (Negative) Hepatitis B Surface Antibody Negative (Negative) Hepatitis B Core Total Antibody Negative (Negative) Hepatitis C Antibody Negative (Negative) Erythrocyte Sedimentation Rate 11 mm/hr (0-20) Sodium Level 141 mmol/L (136-145) Potassium Level 4.1 mmol/L (3.5-5.1) Chloride Level 104 mmol/L (98-107) Carbon Dioxide Level 28 mmol/L (20-31) Anion Gap 9 (5-15) Blood Urea Nitrogen 13 mg/dL (9-23) BUN/Creatinine Ratio 16.9 (10.0-20.0) Serum Glucose 103 mg/dL (74-106) Lactic Acid Level 1.7 mmol/L (0.4-2.0) Calcium Level 9.8 mg/dL (8.7-10.4) C-Reactive Protein High Sensitivity 0.33 mg/dL (<1.0) Other Laboratory Tests 07/05/25 04:59 07/04/25 05:29 06/30/25 21:33 Brief Hx & Hospital Course: 54-year-old male with a history of chronic left foot ulcer chronic alcohol abuse came in chronic nonhealing left foot wound. Found to have cellulitis of the right foot treated with the vancomycin and Rocephin blood cultures negative CT left foot shows cellulitis no osteomyelitis podiatric consult for . who advised that the patient has Freiberg's disease, recommend weightbearing as tolerated in a cam boot. Alcohol abuse treated with a thiamine folic acid Librium patient is being discharged home on clindamycin thiamine folic acid he will follow up with the lead performance support analyst in two weeks. Consults/Reason for consult Podiatric Dr. Cole Operations or Procedures CT left foot Condition at Discharge: Fair Final Diagnosis/Problems List Cellulitis right foot. Vancomycin Rocephin blood cultures negative Freiberg's disease, recommend weightbearing as tolerated in a cam boot no osteomyelitis, podiatric consult by Dr. Cole appreciated Advised outpatient follow up Hypertension Chronic current alcohol abuse: Counseling Moderate malnutrition Discharge Disposition: Home Discharge Instruct/Medications Diet: Regular Activity: Light activity Follow Up/Referral: Stop Drinking alcohol Follow up with your primary Dr in one week Follow up with the podiatric Dr. Sainz in two weeks Medications: Thiamine Folic acid Clindamycin Transmitted to pharmacy Scheduled Clindamycin Hcl (Clindamycin Hcl), 1 CAP PO TID Folic Acid (Folic Acid), 1 MG PO DAILY Thiamine HCl (Thiamine Hydrochloride), 100 MG PO DAILY Scheduled PRN Hydrocodone-Acetaminophen (Hydrocodone Bitartrate/AC 5-325 mg), 1 TAB PO QID PRN 39 (Time taken for discharge summary 39 minutes) Discharge Statement: "Patient was advised to return to the ER or call 911 if any headaches, dizziness, shortness of breath, chest pain, abdominal pain, bleeding, fevers, or worsening of medical condition. Patient was counseled about treatment plan, medications, possible side effects, patientverbalized understanding. All questions were answered to the best of my ability. This discharge took greater then 30 minutes in planning, reviewing documentation, counseling the patient, and discussing with other team members." ASSESSMENT ASSESSMENT Hospital Course Uneventful Assessment Cellulitis right foot. Vancomycin Rocephin blood cultures negative Freiberg's disease, recommend weightbearing as tolerated in a cam boot no osteomyelitis, podiatric consult by Dr. Cole appreciated Advised outpatient follow up Hypertension Chronic current alcohol abuse: Counseling Moderate malnutrition Date of Service: Jul 05, 2025 Billing Provider: CHELI LOCKHART MD Common Visit Codes: 39786-QGL/OBS DISCH DAY >30min CHELI LOCKHART MD Jul 05, 2025 12:37
[2025-07-05 13:29] VITALS: BP 118/74; PULSE 66; RESP 18; TEMP 97.8; O2SAT 96
== END 2025-07-05 15:16 | disposition home or self-care (01) | DRG 383 ==
LOC: ER 19:48 → OVERFLOW 07-01 01:17 → WEST WING 07-01 17:47
PROVIDERS: ADMIT Family Medicine; ATTEND Family Medicine
DX: L03.115 Cellulitis of right lower limb (principal); E44.0 Moderate protein-calorie malnutrition; F10.10 Alcohol abuse, uncomplicated; I10 Essential (primary) hypertension; Z68.31 Body mass index [BMI] 31.0-31.9, adult; D63.8 Anemia in other chronic diseases classified elsewhere; M92.71 Juvenile osteochondrosis of metatarsus, right foot; Y90.9 Presence of alcohol in blood, level not specified
CPT/HCPCS: 36415; 73630; 73701; 73718; 80048; 80061; 80202; 82306; 82565; 82607; 83036; 83605; 84443; 85025; 85652; 86141; 86704; 86706; 86708; 86803; 87040; 87340; 93306; 96365; 96375; G0378